=== PATIENT | male | born 1965 ===

== ENCOUNTER 2018-03-14 13:02 | Emergency (ER) | payer OTHER ==
[2018-03-14 13:32] VITALS: BP 131/77; RESP 18; TEMP 98
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
[2018-03-14 16:04] VITALS: PULSE 76
[2018-03-14 16:18] VITALS: O2SAT 97
== END 2018-03-14 16:04 | disposition home or self-care (01) ==
LOC: C.ER 13:02
DX: S43.402A Unspecified sprain of left shoulder joint, initial encounter (principal); V89.2XXA Person injured in unspecified motor-vehicle accident, traffic, initial encounter